=== PATIENT | male | born 1985 | race Caucasian/White ===

== ENCOUNTER 2019-11-04 19:34 | Emergency (ER) | payer BC ==
--- NOTE | 2019-11-04 19:47 | EDM.PDOC ---
ED HPI GENERAL MEDICAL PROBLEM - General Chief Complaint: Abdominal Pain Stated Complaint: ABDOMINAL BACK PAIN AND FEVER SENT FROM CLINIC Time Seen by Provider: 11/04/19 19:44 - History of Present Illness INITIAL COMMENTS - FREE TEXT/NARRATIVE: Pt sent by [facility]. States he has had fever, chills, bilateral lower abdominal pain, lower back pain, and R sided chest pain since yesterday. Pt states he has been having diarrhea for past week but denies any N/V. Pt states highest fever 103.3F. 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 [No Known Home Meds] 11/04/19 [History] Course - Vital Signs Last Recorded V/S: Last Vital Signs Temp 37.9 C 11/04/19 19:41 Pulse 100 11/04/19 19:41 Resp 18 11/04/19 19:41 BP 135/72 11/04/19 19:41 Pulse Ox 97 11/04/19 19:41 Departure - Discharge Information Referrals: PCP,None [Primary Care Provider] - Sepsis Event Note - Evaluation Sepsis Screening Result: No Definite Risk - Focused Exam Vital Signs: Vital Signs Temp Pulse Resp BP Pulse Ox 11/04/19 19:41 37.9 C 100 18 135/72 97 Date Exam was Performed: 11/04/19 Time Exam was Performed: 19:47
[2019-11-04] MEDS ORDERED: Sodium Chloride 0.9% 1,000 ML IV ONE (20:03)
--- NOTE | 2019-11-04 20:34 | EDM.PDOC ---
ED HPI GENERAL MEDICAL PROBLEM - General Chief Complaint: Abdominal Pain Stated Complaint: ABDOMINAL BACK PAIN AND FEVER SENT FROM CLINIC Time Seen by Provider: 11/04/19 19:44 Source of Information: Reports: Patient History Limitations: Reports: No Limitations - History of Present Illness INITIAL COMMENTS - FREE TEXT/NARRATIVE: TRIAGE NOTE -- Pt sent by [facility]. States he has had fever, chills, bilateral lower abdominal pain, lower back pain, and R sided chest pain since yesterday. Pt states he has been having diarrhea for past week but denies any N/ V. Pt states highest fever 103.3F. Pt states took tylenol 1700 [ End ] The patient is essentially complaining of flulike symptoms emerging over the past 12 to 24 hours. He does not complain of abdominal pain on my interview. He complains of fever chills and malaise. There has been occasional diarrhea. No nausea or vomiting. No billy respiratory symptoms. Says he does not have a sore throat. No readily identified risk factors. Patient has taken Tylenol for needing with ibuprofen without improvement. He has no chronic conditions, takes no medications on a regular basis, is a non- smoker. 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 [No Known Home Meds] 11/04/19 [History] Past Medical History Gastrointestinal History: Reports: Other (See Below) Other Gastrointestinal History: blood in stool - Infectious Disease History Infectious Disease History: Reports: Chicken Pox - Past Surgical History Neurological Surgical History: Reports: Other (See Below) Other Neurological Surgeries/Procedures: pylogenic granuloma removed Musculoskeletal Surgical History: Reports: Other (See Below) Other Musculoskeletal Surgeries/Procedures:: ACL,MCL,meniscus R and L knees Social & Family History - Family History Family Medical History: Noncontributory - Tobacco Use Smoking Status *Q: Never Smoker Second Hand Smoke Exposure: No - Caffeine Use Caffeine Use: Reports: Coffee - Recreational Drug Use Recreational Drug Use: No ED ROS GENERAL - Review of Systems Review Of Systems: Comprehensive ROS is negative, except as noted in HPI. ED EXAM, GENERAL - Physical Exam Exam: See Below Exam Limited By: No Limitations General Appearance: Alert, WD/WN, No Apparent Distress Eye Exam: Bilateral Eye: EOMI, PERRL Ears: Normal External Exam Nose: Normal Inspection Throat/Mouth: Normal Inspection Head: Atraumatic, Normocephalic Neck: Normal Inspection, Supple, Non-Tender Respiratory/Chest: No Respiratory Distress, Lungs Clear, Normal Breath Sounds Cardiovascular: Regular Rate, Rhythm GI/Abdominal: Soft, Non-Tender (Except for some slight epigastric discomfort elicited by deep palpation). No: Guarding, Rebound Back Exam: Normal Inspection Extremities: Normal Inspection Neurological: Alert, Oriented, Normal Cognition Psychiatric: Normal Affect Skin Exam: Warm, Dry Course - Vital Signs Last Recorded V/S: Last Vital Signs Temp 37.9 C 11/04/19 19:41 Pulse 100 11/04/19 19:41 Resp 18 11/04/19 19:41 BP 135/72 11/04/19 19:41 Pulse Ox 97 11/04/19 19:41 - Orders/Labs/Meds Orders: Active Orders 24 hr Category Date Time Status CULTURE STREP A CONFIRMATION [RM] Stat Lab 11/04/19 20:15 Results Rapid Strep w/culture conf [STREP SCRN A RAPID W CULT Lab 11/04/19 20:15 Results CONF] [] Stat Labs: Laboratory Tests 11/04/19 11/04/19 Range/Units 20:15 20:15 WBC 7.25 (4.23-9.07) K/mm3 RBC 5.24 (4.63-6.08) M/mm3 Hgb 15.6 (13.7-17.5) gm/dl Hct 44.8 (40.1-51.0) % MCV 85.5 (79.0-92.2) fl MCH 29.8 (25.7-32.2) pg MCHC 34.8 (32.2-35.5) g/dl RDW Std Deviation 40.9 (35.1-43.9) fL Plt Count 175 (163-337) K/mm3 MPV 10.0 (9.4-12.3) fl Neut % (Auto) 86.5 H (34.0-67.9) % Lymph % (Auto) 5.2 L (21.8-53.1) % [place] % (Auto) 8.1 (5.3-12.2) % Eos % (Auto) 0 L (0.8-7.0) Baso % (Auto) 0.1 (0.1-1.2) % Neut # (Auto) 6.26 H (1.78-5.38) K/mm3 Lymph # (Auto) 0.38 L (1.32-3.57) K/mm3 [place] # (Auto) 0.59 (0.30-0.82) K/mm3 Eos # (Auto) 0.00 L (0.04-0.54) K/mm3 Baso # (Auto) 0.01 (0.01-0.08) K/mm3 Manual Slide Review Normal smear Sodium 140 (136-145) mEq/L Potassium 4.0 (3.5-5.1) mEq/L Chloride 102 (98-107) mEq/L Carbon Dioxide 27 (21-32) mEq/L Anion Gap 15.0 (5-15) BUN 12 (7-18) mg/dL Creatinine 1.2 (0.7-1.3) mg/dL Est Cr Clr Drug Dosing 97.90 mL/min Estimated GFR (MDRD) > 60 (>60) mL/min BUN/Creatinine Ratio 10.0 L (14-18) Glucose 100 (74-106) mg/dL Calcium 8.9 (8.5-10.1) mg/dL Total Bilirubin 0.6 (0.2-1.0) mg/dL AST 13 L (15-37) U/L ALT 21 (16-63) U/L Alkaline Phosphatase 63 (46-116) U/L Total Protein 6.6 (6.4-8.2) g/dl Albumin 4.1 (3.4-5.0) g/dl Globulin 2.5 gm/dL Albumin/Globulin Ratio 1.6 (1-2) Meds: Medications Discontinued Medications Generic Name Dose Route Start Last Admin Trade Name Freq PRN Reason Stop Dose Admin Sodium Chloride 1,000 mls @ 1,000 mls/hr 11/04/19 20:03 11/04/19 20:24 Normal Saline IV 11/04/19 21:02 1,000 mls/hr ONETIME ONE Administration - Re-Assessments/Exams Free Text/Narrative Re-Assessment/Exam: 11/04/19 22:22 Patient feels much better after a liter of IV fluids. There are no salient lab abnormals. Negative for flu and strep. Instructed to go on a clear liquid diet for the next 12 hours with strict precautions for return to ER. Departure - Departure Time of Disposition: 22:23 Disposition: Home, Self-Care 01 Condition: Good Clinical Impression: Flu-like symptoms - Discharge Information Referrals: PCP,None [Primary Care Provider] - Forms: ED Department Discharge Additional Instructions: You have come in with flulike symptoms. You were negative for flu and strep but there are other viruses that can cause the symptoms you have. Your lab work looks just fine otherwise. CBC and chemistry were both unremarkable. Recommend clear liquid diet for the next 12 hours. If you cannot maintain brisk urine output due to GI symptoms return to ER right away. Return for any concern including lack of brisk resolution of your condition etc. Sepsis Event Note - Evaluation Sepsis Screening Result: No Definite Risk - Focused Exam Vital Signs: Vital Signs Temp Pulse Resp BP Pulse Ox 11/04/19 19:41 37.9 C 100 18 135/72 97 Date Exam was Performed: 11/04/19 Time Exam was Performed: 22:22 - My Orders Last 24 Hours: My Active Orders 11/04/19 20:15 CULTURE STREP A CONFIRMATION [RM] Stat Rapid Strep w/culture conf [STREP SCRN A RAPID W CULT CONF] [RM] Stat - Assessment/Plan Last 24 Hours: My Active Orders 11/04/19 20:15 CULTURE STREP A CONFIRMATION [RM] Stat Rapid Strep w/culture conf [STREP SCRN A RAPID W CULT CONF] [] Stat
== END 2019-11-04 22:42 | disposition home or self-care (01) ==
LOC: JD.ED 19:34
DX: R07.9 Chest pain, unspecified (principal); R50.9 Fever, unspecified; R53.83 Other fatigue; Z88.1 Allergy status to other antibiotic agents; Z88.0 Allergy status to penicillin; Z88.2 Allergy status to sulfonamides
CPT/HCPCS: 36415; 80053; 85025; 87081; 87430; 87804; 96360; 99284; J7030; 99283

== ENCOUNTER 2021-09-01 14:19 | Emergency (ER) | payer BC, MEDICAID ==
[2021-09-01] MEDS ORDERED: Acetaminophen/oxyCODONE 325-5 MG Tab PO ONE (16:11)
[2021-09-01] MEDS ORDERED: Ondansetron 4 MG Tab.DIS PO ONE (16:11)
--- NOTE | 2021-09-01 16:17 | EDM.PDOC ---
ED HPI GENERAL MEDICAL PROBLEM - General Chief Complaint: Trauma Stated Complaint: JAW INJURY Time Seen by Provider: 09/01/21 16:10 Source of Information: Reports: Patient History Limitations: Reports: No Limitations - History of Present Illness INITIAL COMMENTS - FREE TEXT/NARRATIVE: 35-year-old male presents to the ED for evaluation of injury sustained from blunt force trauma to the mid face at the workplace today atapproximately 1120 hrs. He states he was struck by a metal cap that was on a highly preasurized hose( hydro seeder) directly in the mid face injuring his lips and fracturing 4 of his lower midline teeth with avulsion of one completely which he did pick out of his mouth. He has a Guevara type I fracture of his left upper middle incisor as well. He has pain increased along his mandible up into his TMJ joints bilaterally. Complaining diffusely of Lt sided cervical neck pain. Denies any any other injuries. His back is no worse than normal. He was knocked off a platform to the ground but feels he landed on his knees. He states he is walking fine. Did not hit his head and there was no loss of consciousness. He reports that he is up-to-date on his tetanus toxoid. Onset: Today, Sudden Onset Date: 09/01/21 Onset Time: 11:20 Duration: Hour(s):, Getting Worse Location: Reports: Face (The ball and course in the lower dentition), Neck. Denies: Chest, Abdomen, Back, Pelvis Quality: Reports: Ache, Throbbing, Other (Headache which he rates as a 7 out of 10) Severity: Moderate Improves with: Reports: None Worsens with: Reports: None Context: Reports: Trauma (And facial trauma). Denies: Activity, Exercise, Lifting, Sick Contact, Other Associated Symptoms: Reports: Headaches. 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.) Face/Facial Pain Score (Numeric/FACES): 7 - Related Data Allergies Allergy/AdvReac Type Severity Reaction Status Date / Time cephalexin [From Keflex] Allergy Cannot Verified 09/01/21 16:20 Remember Penicillins Allergy Cannot Verified 09/01/21 16:20 Remember Sulfa (Sulfonamide Allergy Cannot Verified 09/01/21 16:20 Antibiotics) Remember Home Meds: Home Meds Doxycycline [Vibra-Tabs] 100 mg PO Q12HR #20 tab 09/01/21 [Rx] oxyCODONE HCl/Acetaminophen [Percocet 5-325 mg Tablet] 1 - 2 each PO Q4H PRN #16 tablet 09/01/21 [Rx] Past Medical History Gastrointestinal History: Reports: Other (See Below) Other Gastrointestinal History: blood in stool - Infectious Disease History Infectious Disease History: Reports: Chicken Pox - Past Surgical History Neurological Surgical History: Reports: Other (See Below) Other Neurological Surgeries/Procedures: pylogenic granuloma removed Musculoskeletal Surgical History: Reports: Other (See Below) Other Musculoskeletal Surgeries/Procedures:: ACL,MCL,meniscus R and L knees Social & Family History - Family History Family Medical History: No Pertinent Family History - Caffeine Use Caffeine Use: Reports: Coffee - Living Situation & Occupation Living situation: Reports: Single Occupation: Employed Review of Systems - Review of Systems Review Of Systems: See Below Constitutional: Reports: No Symptoms Eyes: Reports: No Symptoms Ears: Reports: No Symptoms Nose: Reports: No Symptoms Mouth/Throat: Reports: Bleeding (From injury to his lower middle incisors), Lip Swelling (Lower lip is swollen with no), Loose Teeth ( and lateral incisor teeth. Left lower middle incisor has been avulsed completely). Denies: Tongue Swelling, Throat Swelling ( mucosal lacerations), Hoarse Voice, Muffled Voice Respiratory: Reports: No Symptoms. Denies: Shortness of Breath Cardiovascular: Reports: No Symptoms GI/Abdominal: Reports: No Symptoms Genitourinary: Reports: No Symptoms Musculoskeletal: Reports: Back Pain Skin: Reports: No Symptoms (Chronic low back pain.) Neurological: Reports: No Symptoms Psychiatric: Reports: No Symptoms ED EXAM, GENERAL - Physical Exam Exam: See Below Exam Limited By: No Limitations General Appearance: Alert, WD/WN, Mild Distress, Other (Bleeding from his mouth.) Eye Exam: Right Eye: Normal Inspection (No injury to the periorbital tissues. No), Bilateral Eye: PERRL Ears: Normal TMs Ear Exam: Right Ear: Auricle Normal Nose: Normal Inspection, Normal Mucosa, No Blood Throat/Mouth: Other ( There is swelling of both lips but no). No: Normal Teeth (Has a Guevara type I fracture left upper middle incisor tooth. Has complete avulsion of his left lower middle incisor tooth and displacement posteriorly of both lateral incisors and the right middle incisor tooth.) Head: Atraumatic ( mucosal injuries appreciated.), Normocephalic, Facial Tenderness (10 tenderness at both temporomandibular joints and along the angle of the mandible but male there is no significant malocclusion), Other Neck: Tender Lateral (Paraspinal muscle spasm on the left side). No: Carotid Bruit, Lymphadenopathy (L), Lymphadenopathy (R) Respiratory/Chest: No Respiratory Distress ( with reduced range of motion.), Lungs Clear, Normal Breath Sounds, No Accessory Muscle Use Cardiovascular: Normal Peripheral Pulses, Regular Rate, Rhythm, No Edema, No Gallop, No Murmur, No Rub Peripheral Pulses: 3+: Carotid (L), Carotid (R), Posterior Tibial (L), Posterior Tibial (R), Dorsalis Pedis (L), Dorsalis Pedis (R) GI/Abdominal: Normal Bowel Sounds, Soft, Non-Tender, No Organomegaly, No Abnormal Bruit, No Mass, Pelvis Stable Back Exam: Normal Inspection, Decreased Range of Motion. No: CVA Tenderness (L), CVA Tenderness (R), Muscle Spasm (Be stiff and sore but he states no worse than normal.) Extremities: Normal Inspection, Normal Range of Motion, Non-Tender, No Pedal Edema Neurological: Alert, Oriented, CN II-XII Intact, Normal Cognition, Normal Gait Psychiatric: Normal Affect, Normal Mood Skin Exam: Warm, Dry, Intact, Normal Color, No Rash ED TRAUMA PROCEDURES - Laceration/Wound Repair Face Lac/Wound Length In cm: 1.5 Appearance: Subcutaneous Distal NVT: Neuro & Vascular Intact Anesthetic Type: Local Local Anesthesia - Lidocaine (Xylocaine): 1% Plain Local Anesthetic Volume: 2cc Skin Prep: Saline Closed With: Sutures Suture Size: 4-0 # of Sutures: 3 Suture Type: Nylon, Interrupted, Simple Course - Vital Signs Last Recorded V/S: Last Vital Signs Temp 36.5 C 09/01/21 16:12 Pulse 57 L 09/01/21 16:12 Resp 16 09/01/21 16:12 BP 131/99 H 09/01/21 16:12 Pulse Ox 97 09/01/21 16:12 - Orders/Labs/Meds Meds: Medications Discontinued Medications Generic Name Dose Route Start Last Admin Trade Name Jordan PRN Reason Stop Dose Admin Lidocaine HCl 10 ml 09/01/21 17:47 09/01/21 18:35 Lidocaine 1% 10 Ml Mdv INJECT 09/01/21 17:48 10 ml ONETIME ONE Administration Ondansetron HCl 4 mg 09/01/21 16:11 09/01/21 16:40 Ondansetron 4 Mg Tab.Dis PO 09/01/21 16:12 4 mg ONETIME ONE Administration Oxycodone/Acetaminophen 2 tab 09/01/21 16:11 09/01/21 16:39 Acetaminophen/Oxycodone 325-5 Mg Tab PO 09/01/21 16:12 2 tab ONETIME ONE Administration - Radiology Interpretation Free Text/Narrative:: 35-year-old male presents to the ED after suffering blunt trauma to his mid face primarily lips and dentition. He was struck by a large piece of metal off of the machine at about 1120 hrs. this morning. He was up in the air about 8 feet and did fall to the ground landing on his knees. There was no loss of conscious. One of his teeth was knocked out completely and he was able to recover it and has it in his pocket. This appears to be the left lower middle incisor tooth. He has suffered fractures with posterior displacement of the right lower middle incisor and both lateral incisor teeth. He has an Guevara type I fracture to the left upper middle incisor tooth. No mucosal injuries to the inner mouth or tongue. Tenderness along the mandible particular at the TMJs. No palpable deformities to suggest clinically a fractured mandible. Mild tenderness cervical spine particularly with left-sided paraspinal muscle tenderness. No other injuries identified on complete exam. Plan he will have CT maxillofacial bones and CT cervical spine. Given Percocet tabs 5/325 mg tabs x2 with a sip of water and Zofran 4 mg ODT since he did not want an IV started. - Re-Assessments/Exams Free Text/Narrative Re-Assessment/Exam: 09/01/21 17:47 CT of the maxilla facial bones reveals lucency identified around the tooth roots of the anterior incisors within the mandible. This is felt com pared with tooth injury. No mandibular fracture is appreciated mild areas of mucosal thickening are seen within the maxillary sinuses. Right and left globes are symmetric other portion of the facial bones show no fracture. Slight mucosal thickening within the maxillary sinuses which is likely chronic. CT of the cervical spine reveals vertebral body heights and disc spaces to be well-maintained. No bony central or neural foraminal stenosis is seen. Visualized lung apices are clear. No fractures are identified with no abnormal subluxation either. 09/01/21 18:45: 1.5 cm laceration just inferior to his lower lip in the midline was sutured under local anesthetic times 3 Ethilon sutures. Superficial laceration contusion to the inner lip was not sutured. Sutures will need to be removed in 7 to 8 days time. The plan will be to refer him to a dentist in [place] tomorrow for definitive management of his posteriorly subluxed lower teeth and eventual repair of completely avulsed tooth with a implant. He will need repair of his left upper medial incisor Guevara type I fracture. Discharged on doxycycline 100 mg by mouth twice daily for 10 days to prevent secondary wound infection particularly due to alveolar fractures of his lower mandible. Percocet tabs 5/325 mg strength 1 or 2 every 4 hours as needed for pain relief x16 tablets. Departure - Departure Time of Disposition: 18:57 Disposition: Home, Self-Care 01 Condition: Fair Clinical Impression: Simple laceration of chin, Contusion of lip, initial encounter Blunt trauma of face Qualifiers: Encounter type: initial encounter Qualified Code(s): S09.93XA - Unspecified injury of face, initial encounter Dental injury Qualifiers: Encounter type: initial encounter Qualified Code(s): S09.93XA - Unspecified injury of face, initial encounter - Discharge Information *PRESCRIPTION DRUG MONITORING PROGRAM REVIEWED*: Not Applicable *COPY OF PRESCRIPTION DRUG MONITORING REPORT IN PATIENT SELIN: Not Applicable Prescriptions: oxyCODONE HCl/Acetaminophen [Percocet 5-325 mg Tablet] 1 - 2 each PO Q4H PRN #16 tablet PRN Reason: pain relief. Doxycycline [Vibra-Tabs] 100 mg PO Q12HR #20 tab Instructions: Laceration Care, Adult Referrals: PCP,None [Primary Care Provider] - Forms: ED Department Discharge Additional Instructions: Evaluation in the emergency room today in regards to blunt mid facial trauma that occurred at work around 1120 hrs. this morning. He was struck primarily in the mouth and lips by a large metal object which resulted in an Guevara type I fracture of the left upper middle incisor tooth . Complete avulsion of the lower left lower middle incisor tooth and posterior deviation of the lateral incisors and the right lower middle incisor tooth as well. CT scan reveals only dental injuries with no fracture of the mandible itself. There is some fractures around the bone insertion sites called alveolar bone. Similarly CT of your cervical spine proved to be negative for any bony injuries but expect increase stiffness and soreness to develop in your neck over the next 24 to 36 hours. You will need to follow-up with Dr. Brendon Giraldo-at [place] [facility] in [place] which is across the [address] from [id number] and [employer] [address]. The phone number is . I have made you an appointment to see him at 1400 hrs. central standard time tomorrow. He suggest you attend the clinic approximately half hour before this for paperwork so around 1330 hrs. central standard time at 1230 hrs. are time in the interim you may take Percocet tabs 5/325 mg strength 1 or 2 every 4-6 hours necessary for pain relief. May also take Motrin 600 mg every 6 hours for pain relief as needed. Of note Percocet should be taken with a little food in your stomach as it can cause nausea and vomiting in the body on the empty stomach. Contusion to the inner lower lip did not require any suture repair. Laceration outer lower lip was cleansed and sutured x2 under local anesthetic. The suture should be removed in 7 to 8 days time. Suggest antibiotic doxycycline 100 mg by mouth twi ce daily for the next 10 days to prevent secondary wound infection. Sepsis Event Note (ED) - Focused Exam Vital Signs: Vital Signs Temp Pulse Resp BP Pulse Ox 09/01/21 16:12 36.5 C 57 L 16 131/99 H 97
--- NOTE | 2021-09-01 16:41 | CT ---
CT cervical spine Technique: Multiple axial sections were obtained from above C2 inferiorly to the top of T2. Reconstructed coronal and sagittal images were obtained. Comparison: No prior cervical spine imaging is available. Findings: Vertebral body heights and disc spaces are maintained. No bony central or neural foraminal stenosis is seen. Visualized lung apices are clear. No fracture is seen. No abnormal subluxation is seen. Impression: 1. Nothing acute is seen on CT study of the cervical spine. Diagnostic code #1
--- NOTE | 2021-09-01 17:02 | CT ---
CT facial bones Technique: Multiple axial sections were obtained through the facial bones. Reconstructed coronal and sagittal images were obtained. Intravenous contrast was not utilized. Comparison: No previous facial imaging is available. Findings: Lucency is identified around the tooth roots of the anterior incisors within the mandible. This is felt compatible with tooth injury. No mandibular fracture is appreciated. Mild areas of mucosal thickening are seen within the maxillary sinuses. Right and left globes are symmetric. Other portions of the facial bones show no fracture. Impression: 1. Lucency around the roots of the mandibular incisors compatible with injury. 2. Slight mucosal thickening within the maxillary sinuses which is likely chronic. 3. No facial bone fracture is seen. Diagnostic code #3
[2021-09-01] MEDS ORDERED: Lidocaine 1% 10 ML MDV INJECT ONE (17:47)
== END 2021-09-01 19:18 | disposition home or self-care (01) ==
LOC: JD.ED 14:19
DX: S01.81XA Laceration without foreign body of other part of head, initial encounter (principal); Z88.1 Allergy status to other antibiotic agents; Z88.0 Allergy status to penicillin; Z88.2 Allergy status to sulfonamides; W26.8XXA Contact with other sharp object(s), not elsewhere classified, initial encounter; Y99.0 Civilian activity done for income or pay
CPT/HCPCS: 12011; 70486; 72125; 99283; A9270